=== PATIENT | male | born 1995 | race African-American/Black ===

== ENCOUNTER 2023-06-30 16:21 | Emergency (ER) | payer MEDICAID ==
[~2023-06-30] VITALS: Ht 190.5 cm; Wt 122.0 kg
[2023-06-30 16:29] VITALS: BP 143/75; PULSE 84; RESP 18; TEMP 98.4; O2SAT 99
[2023-06-30 17:23] LABS: BASOPHILS % 0.7 % (0.0-2.0); HEMATOCRIT. 35.7 % (42.0-52.0); HEMOGLOBIN. 11.6 g/dL (14.0-18.0); LYMPHOCYTES % 23.9 % (20.0-50.0); MEAN CORPUSCULAR HEMOGLOBIN 27.2 pg (28.0-32.0); MEAN CORPUSCULAR HGB CONC 32.6 g/dL (31.0-37.0); MEAN CORPUSCULAR VOLUME 83.5 fL (80.0-94.0); MEAN PLATELET VOLUME 8.5 fl (7.4-10.4); MONOCYTES % 8.4 % (2.0-8.0); PLATELET 286 x1000/uL (130-400); RED BLOOD CELL COUNT 4.27 mill/uL (4.7-6.1); RED CELL DISTRIBUTION WIDTH 14.2 % (11.6-14.6); WHITE BLOOD COUNT 6.6 x1000/uL (4.5-11.0)
[2023-06-30 17:27] LABS: CHLORIDE 112 mEq/L (98-107); INDEX HEMOLYSI 1 (1-3); INDEX ICTERIC 1 (1-4); INDEX LIPEMIC 1 (1-3); SODIUM 140 mEq/L (136-145)
[2023-06-30 17:36] LABS: ALANINE AMINOTRANSFERASE 13 IU/L (13-61); ALBUMIN 3.3 g/dL (3.4-5.0); ASPARTATE AMINOTRANSFERASE 8 IU/L (15-37); BILIRUBIN TOTAL 0.2 mg/dL (0.1-1.0); CALCIUM 8.4 mg/dL (8.5-10.1); CARBON DIOXIDE 25 mEq/L (21-32); CREATININE 1.2 mg/dL (0.6-1.3); GLUCOSE 95 mg/dL (70-105); PROTEIN TOTAL 6.6 g/dL (6.0-8.3); UREA NITROGEN BLOOD 6 mg/dL (7-21)
== END 2023-06-30 18:52 | disposition home or self-care (01) ==
LOC: ER 16:21
DX: R55 Syncope and collapse (principal)
CPT/HCPCS: 36415; 71045; 80053; 85025; 99284

== ENCOUNTER 2024-05-03 10:40 | Emergency (ER) | payer MEDICAID ==
[~2024-05-03] VITALS: Ht 188 cm; Wt 108.9 kg
[2024-05-03 10:54] VITALS: O2SAT 100
[2024-05-03 12:19] VITALS: BP 146/88; PULSE 93; RESP 18; TEMP 98.2
== END 2024-05-03 12:21 | disposition home or self-care (01) ==
LOC: ER 12:05
DX: A15.0 Tuberculosis of lung (principal)
CPT/HCPCS: 71045; 99283; Z7610